=== PATIENT | male | born 1960 | race Caucasian/White ===

== ENCOUNTER 2019-07-28 14:26 | Inpatient (IN) | payer OTHER ==
[~2019-07-28] VITALS: Ht 175.3 cm; Wt 102.2 kg
[~2019-07-28 14:26] MED LIST: Advil200 M1 PO; ESOM20 PO; Nexium40 MG PO; Prilosec Otc20 MG
[2019-07-28 14:48] LABS: Hematocrit 45.9 % (37.0-53.0); Hemoglobin 15.6 g/dL (13.5-17.5); Mean Corpuscular Volume 94 fL (80-100); Mean Platelet Volume 10.4 fL (9.1-12.4); Platelet Count 276 K/mm3 (150-400); RDW Coefficient Variation 12.3 % (11.7-14.2); RDW Standard Deviation 42.8 fL (35.1-46.3); Red Blood Cell Count 4.88 M/mm3 (4.30-5.90); White Blood Cell Count 11.25 K/mm3 (4.00-11.30)
[2019-07-28 14:50] LABS: Calcium, Ionized (POC) 1.07 mmol/L (1.10-1.46); Chloride (POC) 107 mmol/L (98-108); Creatinine (POC) 1.3 mg/dL (0.8-1.3); Glucose (ISTAT POC) 150 mg/dL (70-99); Hemoglobin (POC) 15.6 g/dL (13.5-17.5); Potassium (POC) 3.2 mmol/L (3.5-5.5); Sodium (POC) 140 mmol/L (135-148); Total CO2 (POC) 20 mmol/L (21-32)
[2019-07-28 15:04] LABS: International Normalized Ratio 0.96; Prothrombin Time Results 10.2 Sec (9.7-11.5)
[2019-07-28 15:11] LABS: Magnesium, Blood 2.1 mg/dL (1.6-2.4); Troponin I <0.015 ng/mL (0.000-0.040)
[2019-07-28 15:12] LABS: Alanine Aminotransfer (ALT/SGP 31 U/L (12-78); Albumin, Blood 3.9 g/dL (3.4-5.0); Albumin/Globulin Ratio 1.2 (0.8-1.8); Alk Phos 124 U/L (50-136); Anion Gap 6 mmol/L (6-16); Aspartate Aminotrans (AST/SGOT 19 U/L (12-37); Bilirubin, Total 0.6 mg/dL (0.1-1.0); Blood Urea Nitrogen 18 mg/dL (8-24); Bun/Creatinine Ratio 15.1 (12.0-20.0); CO2, Blood 23 mmol/L (21-32); Calcium, Blood 8.8 mg/dL (8.5-10.1); Chloride, Blood 110 mmol/L (98-108); Cholesterol 201 mg/dL (50-200); Creatinine, Blood 1.19 mg/dL (0.60-1.20); Globulin, Blood 3.2 g/dL (2.2-4.0); Glomerular Filtration Rate >60 (60-); Glucose, Blood 152 mg/dL (70-99); HDL Cholesterol 40 mg/dL (>39); LDL/HDL RATIO 2.9; Low Density Lipoprotein Chol 115 mg/dL (0-110); Potassium, Blood 3.2 mmol/L (3.5-5.5); Sodium, Blood 139 mmol/L (136-145); Total Protein, Blood 7.1 g/dL (6.4-8.2); Triglycerides 232 mg/dL (30-160); Very Low Density Lipoprot Chol 46 mg/dL (6-32)
--- NOTE | 2019-07-28 16:35 | NUR ---
ARRIVAL NOTE: PT ARRIVED FROM [facility] S/P ANGIOGRAM WITH STENTING TO HIS MID AND PROXIMAL RCA PER [facility] STAFF. PT A+O X3. PLEASANT AND COOPERATIVE W/ CARE. PT EDUCATED ON ACTIVITY RESTRICTIONS. FAMILY AT THE BEDSIDE AND UPDATE WITH FINDINGS/PLAN OF CARE. RT TR BAND W/ SPLINT IN PLACE TO RT RADIAL, SITE SOFT/NO BLEEDING/HEMATOMA. PT ORIENTED TO RM/CALL LIGHT IN PLACE. PT DECLINED AT THIS TIME FOR ANY FOOD OR FOR A HOT TRAY TO BE ORDERED. -FULL CODE STATUS -WILL START POTASSIUM IVPB FOR LOW POTASSIUM LEVEL
--- NOTE | 2019-07-28 17:00 | NUR ---
REPORTED OFF: REPORTED OFF TO RADHA ON PT'S STATUS.
--- NOTE | 2019-07-28 20:00 | NUR ---
ASSUMED CARE OF PT AT 1915. REPORT RECEIVED. TR SITE CHECKED AND VERIFIED WITH OFFGOING RN. PT STATES THAT HE HAS MILD PRESSURE IN LEFT MEDIAL ASPECT OF CHEST. TEACHING DONE WITH PT ON POST CATH EXPECTATIONS AND PROCEDURES. WILL REVIEW CHART AND PLAN OF CARE FOR THIS PT.
--- NOTE | 2019-07-28 23:40 | NUR ---
HAVE BEGUN TO DEFLATE TR BAND. NO OOZING OR HEMATOMA TO NOTE. PT REMAINS ALERT AND ORIENTED. PLEASANT AND COOPERATIVE WITH CARE AND ASSESSMENT. PT STANDS AT SIDE OF BED TO URINATE. NO VERTIGO, OR PAIN VOICED. ORTHOSTATIC BLOOD PRESSURES DONE WITHOUT SIGNIFICANT CHANGES IN PRESSURES. SEE VITAL SIGN FLOWSHEET FOR DETAILS. WILL CONTINUE TO MONITOR PT. OF NOTE: PT HAS RUN OF V-TACH WHICH SELF CORRECTS.
--- NOTE | 2019-07-29 01:30 | NUR ---
TR BAND RIGHT WRIST TR BAND ALL AIR REMOVED. NO BLEEDING NOTED. ARM BOARD REAPPLIED. TALKED WITH PT ABOUT STOPPING SMOKING.
[2019-07-29 03:47] LABS: BASOPHILS ABSOLUTE AUTO 0.05 K/mm3 (0.00-0.23); BASOPHILS PERCENT AUTO 0 % (0-2); EOSINOPHILS ABSOLUTE AUTO 0.07 K/mm3 (0.00-0.68); EOSINOPHILS PERCENT AUTO 1 % (0-6); Hematocrit 43.5 % (37.0-53.0); Hemoglobin 15.1 g/dL (13.5-17.5); IMMATURE GRAN ABSOLUTE AUTO 0.04 K/mm3 (0.00-0.10); IMMATURE GRAN PERCENT AUTO 0 % (0-1); LYMPHOCYTES ABSOLUTE AUTO 1.96 K/mm3 (0.84-5.20); LYMPHOCYTES PERCENT AUTO 18 % (21-46); MONOCYTES PERCENT AUTO 10 % (4-13); Mean Corpuscular HGB 31.5 pg (26.0-34.0); Mean Corpuscular HGB Conc 34.7 g/dL (31.5-36.5); Mean Platelet Volume 9.9 fL (9.1-12.4); NEUTROPHILS PERCENT AUTO 71 % (41-73); Platelet Count 222 K/mm3 (150-400); RDW Coefficient Variation 12.7 % (11.7-14.2); RDW Standard Deviation 41.9 fL (35.1-46.3); Red Blood Cell Count 4.79 M/mm3 (4.30-5.90); White Blood Cell Count 11.12 K/mm3 (4.00-11.30)
[2019-07-29 03:48] LABS: Mean Corpuscular Volume 91 fL (80-100)
[2019-07-29] MEDS ORDERED: Aspir 8181 MG PO (03:51)
[2019-07-29 04:04] LABS: Anion Gap 6 mmol/L (6-16); Blood Urea Nitrogen 13 mg/dL (8-24); Bun/Creatinine Ratio 13.1 (12.0-20.0); CO2, Blood 25 mmol/L (21-32); Calcium, Blood 8.6 mg/dL (8.5-10.1); Chloride, Blood 111 mmol/L (98-108); Creatinine, Blood 0.99 mg/dL (0.60-1.20); Glomerular Filtration Rate >60 (60-); Glucose, Blood 101 mg/dL (70-99); Potassium, Blood 4.2 mmol/L (3.5-5.5); Sodium, Blood 142 mmol/L (136-145)
--- NOTE | 2019-07-29 04:32 | NUR ---
PT HAS BEEN UP IN ROOM. AMBULATES WITHOUT ISSUES TO TOILET. HAS BM WHICH HE FLUSHED BEFORE NOTING. PT DENIES CHEST PAIN OR PRESSURE AT THIS TIME. TEACHING DONE ON CARDIAC STENTING, AND IMPROTANCE FOR COMPLIANCE WITH MEDICATIONS. PT VERBALIZES UNDERSTANDING. WILL CONTINUE TO MONITOR PT.
--- NOTE | 2019-07-29 06:30 | NUR ---
PT HAS NOT BEEN ABLE TO SLEEP MUCH THIS NIGHT. DOES STATE THAT HE IS NOT ABLE TO SLEEP IN A PLACE THAT IS NOT HIS HOME. HAS BEEN ABLE TO MOVE ABOUT BED. PROTECTS HIS RIGHT ARM SECONDARY TO RADIAL ACCESS. VSS. DENIES COMPLAINTS. ALERT AND ORIENTED. VERY COMPLIANT WITH INSTRUCTIONS. WILL CONTINUE TO MONITOR AND WILL REPORT OFF TO ONCOMING RN.
--- NOTE | 2019-07-29 08:44 | NUR ---
ASSUMED CARE: RECEIVED REPORT FROM NOC RN. PT SITTING UP A/O X 4 UPON ENTER THE ROOM. PT STATES MILD SHARP PAIN 1/10 IN CHEST, DENIES RADIATING PAIN. NO ACUTE SIGNS OF DISTRESS NOTED. VSS AT THIS TIME. WILL CONTINUE TO MONITOR AND ASSESS FURTHER. CALL LIGHT IN REACH. BED IN LOWEST POSSITION.
--- NOTE | 2019-07-29 11:14 | NUR ---
Echocardiogram completed.
[2019-07-29] MEDS ORDERED: ASPI81CH PO (11:19)
[2019-07-29] MEDS ORDERED: ATOR80 PO (11:20)
[2019-07-29] MEDS ORDERED: FAMO40 PO (11:21)
[2019-07-29] MEDS ORDERED: BRILINTA90 MG PO (11:22)
--- NOTE | 2019-07-29 11:59 | NUR ---
DISCHARGE: PT WALKED OUT OF THE UNIT WITH [facility]. DISCHARGE INSTRUCTIONS REVIEWED WITH PT BY LUCITA DAVIS RN. MEDICATIONS CALLED TO [facility]. PT EDUCATED FULLY ON NO DRIVING FOR ANOTHER 24 HOURS.
== END 2019-07-29 12:00 | disposition home or self-care (01) | DRG 247 ==
LOC: ER 14:26 → ICUW 14:34
PROVIDERS: Emergency Medicine; ADMIT Internal Medicine Interventional Cardiology
PROC: 027034Z Dilation of Coronary Artery, One Artery with Drug-eluting Intraluminal Device, Percutaneous Approach (ICD-10-PCS; principal; 2019-07-28)
PROC: 02703ZZ Dilation of Coronary Artery, One Artery, Percutaneous Approach (ICD-10-PCS; 2019-07-28)
PROC: B240ZZ3 Ultrasonography of Single Coronary Artery, Intravascular (ICD-10-PCS; 2019-07-28)
PROC: B2111ZZ Fluoroscopy of Multiple Coronary Arteries using Low Osmolar Contrast (ICD-10-PCS; 2019-07-28)
DX: I21.19 ST elevation (STEMI) myocardial infarction involving other coronary artery of inferior wall (principal); I44.2 Atrioventricular block, complete; F17.200 Nicotine dependence, unspecified, uncomplicated
CPT/HCPCS: 36415; 71045; 76937; 80047; 80048; 80053; 80061; 83735; 84484; 85014; 85025; 85027; 85347; 85610; 85730; 92978; 93005; 93010; 93306; 93454; 96361; 96374; 96375; 99152; 99153; 99285-25; C1725; C1753; C1769; C1874; C1887; C1894; C9606; J0461; J1644; J2250; J2405; J3010; J3246; J3480; J7030; Q9967

== ENCOUNTER 2019-07-31 02:21 | Observation (INO) | payer OTHER ==
[~2019-07-31] VITALS: Ht 175.3 cm; Wt 98.9 kg
[~2019-07-31 02:21] MED LIST changes: +ASPI81CH PO; +ATOR80 PO; +Aspir 8181 MG PO; +BRILINTA90 MG PO; +FAMO40 PO
[2019-07-31 03:17] LABS: BASOPHILS ABSOLUTE AUTO 0.05 K/mm3 (0.00-0.23); BASOPHILS PERCENT AUTO 1 % (0-2); EOSINOPHILS ABSOLUTE AUTO 0.08 K/mm3 (0.00-0.68); EOSINOPHILS PERCENT AUTO 1 % (0-6); Hematocrit 47.6 % (37.0-53.0); Hemoglobin 16.4 g/dL (13.5-17.5); IMMATURE GRAN ABSOLUTE AUTO 0.04 K/mm3 (0.00-0.10); IMMATURE GRAN PERCENT AUTO 0 % (0-1); LYMPHOCYTES PERCENT AUTO 23 % (21-46); MONOCYTES ABSOLUTE AUTO 0.91 K/mm3 (0.16-1.47); MONOCYTES PERCENT AUTO 9 % (4-13); Mean Corpuscular HGB 32.2 pg (26.0-34.0); Mean Corpuscular HGB Conc 34.5 g/dL (31.5-36.5); Mean Platelet Volume 10.3 fL (9.1-12.4); NEUTROPHILS ABSOLUTE AUTO 6.78 K/mm3 (1.96-9.15); NEUTROPHILS PERCENT AUTO 67 % (41-73); Platelet Count 245 K/mm3 (150-400); RDW Coefficient Variation 12.6 % (11.7-14.2); RDW Standard Deviation 43.6 fL (35.1-46.3); Red Blood Cell Count 5.09 M/mm3 (4.30-5.90); White Blood Cell Count 10.16 K/mm3 (4.00-11.30)
[2019-07-31 03:19] LABS: Mean Corpuscular Volume 94 fL (80-100)
[2019-07-31 03:50] LABS: Alanine Aminotransfer (ALT/SGP 41 U/L (12-78); Albumin/Globulin Ratio 1.1 (0.8-1.8); Alk Phos 116 U/L (50-136); Anion Gap 9 mmol/L (6-16); Aspartate Aminotrans (AST/SGOT 60 U/L (12-37); Bilirubin, Total 1.4 mg/dL (0.1-1.0); Blood Urea Nitrogen 13 mg/dL (8-24); Bun/Creatinine Ratio 11.8 (12.0-20.0); CO2, Blood 23 mmol/L (21-32); Chloride, Blood 109 mmol/L (98-108); Globulin, Blood 3.6 g/dL (2.2-4.0); Glomerular Filtration Rate >60 (60-); Glucose, Blood 92 mg/dL (70-99); Sodium, Blood 141 mmol/L (136-145); Total Protein, Blood 7.6 g/dL (6.4-8.2)
--- NOTE | 2019-07-31 06:43 | NUR ---
END OF SHIFT SUMMARY PT PRESENTS TO ROOM VIA WC, AMBULATES INDEPENDENTLY IN ROOM. STABLE GAIT. VSS. TELE ATTACHED. PT DENYING CP, DIAPHORESIS, SOB, OR PAIN OF ANY SORT OF NOW. ORIENTED TO ROOM. CALL LIGHT WITHIN REACH. AWAITING ONCOMING NURSE.
--- NOTE | 2019-07-31 11:07 | NUR ---
DR BARILLAS HERE TO SEE PT.
[2019-07-31 11:31] LABS: Hematocrit 49.5 % (37.0-53.0); Hemoglobin 16.9 g/dL (13.5-17.5); Mean Corpuscular HGB 32.3 pg (26.0-34.0); Mean Corpuscular HGB Conc 34.1 g/dL (31.5-36.5); Mean Corpuscular Volume 95 fL (80-100); Mean Platelet Volume 10.6 fL (9.1-12.4); Platelet Count 248 K/mm3 (150-400); RDW Coefficient Variation 12.7 % (11.7-14.2); RDW Standard Deviation 43.8 fL (35.1-46.3); Red Blood Cell Count 5.24 M/mm3 (4.30-5.90); White Blood Cell Count 9.05 K/mm3 (4.00-11.30)
--- NOTE | 2019-07-31 11:32 | NUR ---
DR TORRES HERE TO SEE PT. REQ TO HAVE EKG COMPLETED. WILL OBTAIN EKG.
[2019-07-31 12:32] LABS: Alanine Aminotransfer (ALT/SGP 42 U/L (12-78); Albumin, Blood 4.2 g/dL (3.4-5.0); Albumin/Globulin Ratio 1.2 (0.8-1.8); Alk Phos 122 U/L (50-136); Anion Gap 9 mmol/L (6-16); Aspartate Aminotrans (AST/SGOT 49 U/L (12-37); Bilirubin, Total 1.8 mg/dL (0.1-1.0); Blood Urea Nitrogen 13 mg/dL (8-24); Bun/Creatinine Ratio 11.8 (12.0-20.0); CO2, Blood 24 mmol/L (21-32); Calcium, Blood 9.1 mg/dL (8.5-10.1); Chloride, Blood 107 mmol/L (98-108); Globulin, Blood 3.6 g/dL (2.2-4.0); Glomerular Filtration Rate >60 (60-); Glucose, Blood 86 mg/dL (70-99); Potassium, Blood 3.8 mmol/L (3.5-5.5); Sodium, Blood 140 mmol/L (136-145); Total Protein, Blood 7.8 g/dL (6.4-8.2)
[2019-07-31 12:33] LABS: Troponin I 6.09 ng/mL (0.000-0.040)
--- NOTE | 2019-07-31 15:47 | NUR ---
DR TORRES REPORTED PT MAY EAT, REPORTS BEEN IN AND TALKED WITH PT.
--- NOTE | 2019-07-31 19:09 | NUR ---
SHIFT SUMMARY PT EATING AND DRINKING NOW, REPORTS NOT EATING MUCH YET. PT HAVING DIARRHEA "SINCE MY PROCEDURE WEDNESDAY", NOTIFIED SEE ORDERS. PT BEEN ASSISTED WITH ADL'S PRN. PT HAS DENIED ANY CP THIS SHIFT. PT HAD MULT VISITORS. UP IND IN ROOM WITH STEADY GAIT.
[2019-07-31 19:49] LABS: Troponin I 5.79 ng/mL (0.000-0.040)
--- NOTE | 2019-08-01 05:11 | NUR ---
END OF SHIFT SUMMARY NO ACUTE CHANGES THIS SHOFT. VSS. PT COMPLAINING OF SEVERE HEARTBURN, ORDERS RECEIVED. CONTINUES TO DENY CP. AWAITING TROPONIN RESULTS. PT HAS BEEN UP OR RESTING T/O SHIFT INDEPEDENTLY. PT COMMUNICATES NEEDS NEEDED. CALL LIGHT WITHIN REACH. WILL CONTINUE TO MONITOR PT UNTIL SHIFT CHANGE.
[2019-08-01] MEDS ORDERED: LOSA25 PO (12:00)
[2019-08-01] MEDS ORDERED: METO25 PO (12:01)
[2019-08-01] MEDS ORDERED: ROSU10TA PO (12:02)
[2019-08-01] MEDS ORDERED: NEXIUM 24HR20 M2 PO (12:09)
--- NOTE | 2019-08-01 13:45 | NUR ---
SHIFT SUMMARY PT A&Ox4. CALM AND COOPERTIVE WITH CARE. PT UP IND IN ROOM. WALKING IN HALLS T/O SHIFT. AFTER FIRST WALK THIS AM, PT REPORTS CHEST TIGHTNESS AFTER GETTING BACK IN BED, LAST 5-10 MINS AND RESOLVED ON ITS OWN, PT DENIES CHEST TIGHTNESS ON LATER WALKS, DR MIDDLETON NOTIFIED, NO NEW ORDERS. PT DENIES PAIN, SOB AND NAUSEA. PT DENIES NUMB/TING. PT REPORTS REFLUX THIS AM, STARTED ON PRILOSEC THIS AM, ORDERS TO CONTINUE NEXIUM AT HOME PER DR MIDDLETON. TELE SR 70-90'S. VSS. NO OTHER ACUTE CHANGES NOTED. EDUCATED PT ON DISCHARGE INSTRUCTIONS, MEDICATIONS AND FOLLOW UP APPOINTMENTS. CALLED PRESCRIPTIONS IN TO [facility] PER PT REQUEST. PT LEFT ROOM ON FOOT AT 1251, PT STABLE UPON DISCHARGE.
== END 2019-08-01 13:48 | disposition home or self-care (01) ==
LOC: ER 02:21 → PCU 05:48
PROVIDERS: Emergency Medicine; ADMIT Internal Medicine
DX: R20.2 Paresthesia of skin (principal); I25.10 Atherosclerotic heart disease of native coronary artery without angina pectoris; I21.3 ST elevation (STEMI) myocardial infarction of unspecified site; R77.8 Other specified abnormalities of plasma proteins; I10 Essential (primary) hypertension; K21.9 Gastro-esophageal reflux disease without esophagitis; E78.5 Hyperlipidemia, unspecified; Z95.5 Presence of coronary angioplasty implant and graft; Z79.899 Other long term (current) drug therapy; Z79.82 Long term (current) use of aspirin
CPT/HCPCS: 36415; 71046; 80053; 82550; 83880; 84484; 85025; 85027; 93005; 93010; 96372; 99285-25; G0378; J1644; J1650; J2250; J3010; J7030

== ENCOUNTER → 2025-11-13 | Outpatient (CLI) | payer BC ==
[~2025-11-13] MED LIST changes: +CENTRUM SILVER1 EAC2 PO; +LOSA25 PO; +METO25 PO; +NEXIUM 24HR20 M2 PO; +ROSU10TA PO; +ROSU5 PO
== END ==
LOC: LAB SHORT 12:40 → LAB 12:40
DX: L02.31 Cutaneous abscess of buttock (principal)
CPT/HCPCS: 87070; 87075; 87205